=== PATIENT | female | born 1940 | race Two or more races ===

== ENCOUNTER → 2017-03-06 | Outpatient (CLI) | payer OTHER | LOC: BHCLAF 09:00 | PROVIDERS: ATTEND Internal Medicine Cardiovascular Disease | DX: R00.2 Palpitations (principal); I34.0 Nonrheumatic mitral (valve) insufficiency | CPT/HCPCS: 93005-PO ==

== ENCOUNTER → 2017-03-23 | Outpatient (CLI) | payer OTHER | LOC: BHCLAF 09:15 | PROVIDERS: ATTEND Internal Medicine | DX: R00.2 Palpitations (principal); I34.9 Nonrheumatic mitral valve disorder, unspecified | CPT/HCPCS: 93306-PO ==

== ENCOUNTER → 2017-04-29 | Outpatient (CLI) | payer OTHER | LOC: BHFA 11:30 | PROVIDERS: ATTEND Internal Medicine Cardiovascular Disease | DX: R00.2 Palpitations (principal) ==

== ENCOUNTER → 2017-07-09 | Outpatient (CLI) | payer OTHER | LOC: BHLMT 11:00 | PROVIDERS: ATTEND Internal Medicine Cardiovascular Disease | DX: I73.9 Peripheral vascular disease, unspecified (principal); R20.0 Anesthesia of skin ==

== ENCOUNTER → 2017-07-13 | Outpatient (CLI) | payer OTHER ==
[~2017-07-13] MED LIST: IOPAMIDOL (ISOVUE 370) 100 ML BTL IV ONE
== END ==
LOC: CIMAGING 07:51
PROVIDERS: ATTEND Internal Medicine Cardiovascular Disease
DX: Z09 Encounter for follow-up examination after completed treatment for conditions other than malignant neoplasm (principal); I73.9 Peripheral vascular disease, unspecified; R20.0 Anesthesia of skin
CPT/HCPCS: 70450; 70496; Q9967; 82565-PO

== ENCOUNTER 2017-07-15 06:43 | Day surgery (SDC) | payer OTHER ==
[2017-07-15] MEDS ORDERED: DIAZEPAM 5 MG TAB PO ONE (06:47)
[2017-07-15] MEDS ORDERED: FAMOTIDINE 20 MG TAB PO ONE (06:47)
[2017-07-15] MEDS ORDERED: diphenhydrAMINE 25 MG CAP PO ONE (06:47)
[2017-07-15] MEDS ORDERED: NS 1,000 ML IV ONE (06:47)
[2017-07-15] MEDS ORDERED: ASPIRIN EC 325 MG TAB PO ONE (06:47)
--- NOTE | 2017-07-15 07:13 | CPEKG ---
Heart Rate: 69 RR Interval: 870 P-R Interval: 164 QRSD Interval: 78 QT Interval: 412 QTC Interval: 442 P [place]: 70 QRS [place]: 21 T Wave [place]: 49 EKG Severity - NORMAL ECG - EKG Impression: SINUS RHYTHM Electronically Signed By: Greg Tabares 15-Jul-2017 10:28:48
[2017-07-15 07:24] LABS: % IMMATURE GRANULYOCYTES 0.3 % (0.0-1.1); ABSOLUTE IMMATURE GRANULOCYTES 0.01 10^3/uL (0.00-0.10); ADD DIFF? NO; ADD MORPH? NO; ADD SCAN? NO; ATYPICAL LYMPHOCYTE FLAG 10 (0-99); FRAGMENT RBC FLAG 0 (0-99); HEMATOCRIT 39.7 % (38.0-47.0); HEMOGLOBIN 13.9 g/dL (12.6-16.3); LEFT SHIFT FLG 0 (0-99); LIPEMIA HEMOLYSIS FLAG 90 (0-99); MEAN CELL HEMOGLOBIN 31.2 pg (27.9-34.1); MEAN CELL VOLUME 89.2 fL (81.5-99.8); MEAN PLATELET VOLUME 9.4 fL (8.7-11.7); PLATELET CLUMPS FLAG 0 (0-99); PLATELET COUNT 167 10^3/uL (150-400); RED BLOOD CELL COUNT 4.45 10^6/uL (4.18-5.33); RED CELL DISTRIBUTION WIDTH 13.8 % (11.5-15.2)
[2017-07-15 07:35] LABS: INR 1.08 (0.83-1.16); PROTIME(PATIENT) 13.9 SEC (12.0-15.0)
[2017-07-15 07:41] LABS: ANION GAP 14 mEq/L (8-16); CALCIUM 9.4 mg/dL (8.5-10.4); CARBON DIOXIDE 19 mEq/l (22-31); CHLORIDE 110 mEq/L (97-110); CHOLESTEROL 207 mg/dL (140-220); CHOLESTEROL/HDL RATIO 2.72 RATIO (1.00-4.44); GLOMERULAR FILTRATION RATE 54; GLUCOSE 85 mg/dL (70-100); HIGH DENSITY LIPOPROTEIN 76 mg/dL (40-85); LDL/HDL RATIO 1.36 RATIO (1.00-3.22); LOW DENSITY LIPOPROTEIN 103 mg/dL (80-100); MAGNESIUM 2.2 mg/dL (1.6-2.3); NON-HIGH DENSITY LIPOPROTEIN 131 mg/dL (90-129); POTASSIUM 3.9 mEq/L (3.5-5.2); SODIUM 143 mEq/L (134-144); TRIGLYCERIDE 143 mg/dL (35-135); VERY LOW DENSITY LIPOPROTEINS 28 mg/dL (8-25)
--- NOTE | 2017-07-15 08:52 | PDPROPOC ---
Sedation Plan of Care Sedation Plan of Care: vital signs stable, mental status noted, patient educated of risks, benefits, alternatives, patient can tolerate sedation ASA Classification: ASA 1 Planned drugs: fentanyl, midazolam Mallampati Score: Class 1 Mallampati Reference Image: Patient passed 3-3-2 rule?: Yes
--- NOTE | 2017-07-15 08:52 | PDGENHP ---
History & Physical Chief Complaint: Chest pains History of Present Illness: Patient is a 77 y/o female with history of HTN, HLP , and moderate mitral regurgitation with palpitations. Patient was seen by EP and there is desire for patient to have invasive angiography to determine if there are critical lesions to account for symptoms noted. Chest pain/pressure was noted this morning on the way into the hospital. Pertinent Past, Social, Family History: No changes in comparison to that which was noted on 06-29-17 (outpatient office note). Relevant Physical Exam: No changes noted in comparison to outpatient assessment. Cardiorespiratory Assessment: RRR, CTA, no edema
[2017-07-15] MEDS ORDERED: LIDOCAINE 1% 300 MG/30 ML SDV ONE (09:08)
[2017-07-15] MEDS ORDERED: fentaNYL 100 MCG/2 ML INJ ONE (09:08)
[2017-07-15] MEDS ORDERED: MIDAZOLAM 2 MG/2 ML VIAL ONE (09:08)
[2017-07-15] MEDS ORDERED: IOPAMIDOL (ISOVUE-370) 150 ML BTL IV ONE (09:08)
--- NOTE | 2017-07-15 09:57 | PDDXCAT ---
Diagnostic Cath Note - . Date: 07/15/17 Brick Maker: Raysa Indication: Class I/II angina, intolerance to med therapy or failure to respond - Procedure Access: right groin Procedure: left heart catheterization, coronary angiography, left ventriculogram - Materials Left Heart Cath size: 6F Left Heart Cath materials: standard multipack (JL4, JR4, pigtail) - Findings-Left Heart Catheterization LM: Short vessel with trifurcation into the LAD, ramus, and LCX vessels. No luminal irregularities were noted LAD: Medium caliber vessel with diffuse luminal irregularities of no more than 20%. The second Diag is the principal branch vessel. D1 was rather small and diminuative. At the take off for D2, just proximal is the 20% lesion. The mid and distal portion of the LAD with moderate tortuosity. LCX: Medium caliber vessel with one principal OM which maintains the diameter of the proximal LCX. Tortuosity is noted from mid to distal vessel (both LCX and OM). No appreciable luminal irregularities were noted. RCA: Medium caliber vessel without luminal irregularities. This is the dominant vessel (supply to the [place] territory). Ramus: Small vessl without appreciable luminal irregularities noted. EDP: 12 mm Hg LVEF: 65% Wall motion: normal wall motion Complications: none Estimated blood loss: <50ml Closure method: manual pressure Assessment: 77 y/o female with HTN and HLP and no critical CAD noted. There were lesions to the LAD (mid vessel) up to 20%, but no other appreciable lesions. Tortuosity was noted to the LAD and LCX vessels (consistent with HTN history). Normal LVEF with normal wall motion. Plan: Aggressive medical management. Intervention: none
[2017-07-15] MEDS ORDERED: OXYCODONE/APAP 5/325 TAB PO PRN (10:01)
[2017-07-15] MEDS ORDERED: HYDROCODONE/APAP 5/325 TAB PO PRN (10:01)
[2017-07-15] MEDS ORDERED: ONDANSETRON 4 MG/2 ML VIAL IVP PRN (10:01)
[2017-07-15] MEDS ORDERED: ATROPINE SULFATE 1 MG/10 ML SYR IVP PRN (10:01)
[2017-07-15] MEDS ORDERED: NITROGLYCERIN 0.4 MG BTL SL PRN (10:01)
== END 2017-07-15 15:48 | disposition home or self-care (01) ==
LOC: FCATH 06:43
PROVIDERS: ATTEND Internal Medicine Cardiovascular Disease
PROC: B2111ZZ Fluoroscopy of Multiple Coronary Arteries using Low Osmolar Contrast (ICD-10-PCS; principal; 2017-07-15)
PROC: B2151ZZ Fluoroscopy of Left Heart using Low Osmolar Contrast (ICD-10-PCS; principal; 2017-07-15)
PROC: 4A023N7 Measurement of Cardiac Sampling and Pressure, Left Heart, Percutaneous Approach (ICD-10-PCS; principal; 2017-07-15)
DX: R07.9 Chest pain, unspecified (principal); R00.2 Palpitations; R94.39 Abnormal result of other cardiovascular function study; R20.2 Paresthesia of skin; I12.9 Hypertensive chronic kidney disease with stage 1 through stage 4 chronic kidney disease, or unspecified chronic kidney disease; E78.5 Hyperlipidemia, unspecified; I34.0 Nonrheumatic mitral (valve) insufficiency; K21.9 Gastro-esophageal reflux disease without esophagitis; N18.9 Chronic kidney disease, unspecified
CPT/HCPCS: J1644; J2250; J3010; Q9967

== ENCOUNTER → 2017-07-24 | Outpatient (CLI) | payer OTHER | LOC: FIMAGING 12:13 | PROVIDERS: ATTEND Internal Medicine Cardiovascular Disease | DX: T14.8XXA Other injury of unspecified body region, initial encounter (principal) ==

== ENCOUNTER → 2018-03-08 | Outpatient (CLI) | payer OTHER | LOC: BHFA 10:00 | PROVIDERS: ATTEND Internal Medicine | DX: I34.0 Nonrheumatic mitral (valve) insufficiency (principal) ==

== ENCOUNTER → 2018-10-28 | Outpatient (CLI) | payer OTHER | LOC: FIMAGING 09:53 | PROVIDERS: ATTEND Family Medicine | DX: N64.4 Mastodynia (principal) ==